=== PATIENT | female | born 1950 | race Hispanic/Latino ===

== ENCOUNTER 2017-09-24 11:00 | Emergency (ER) | payer OTHER ==
[~2017-09-24] VITALS: Ht 162.6 cm; Wt 90.7 kg
[2017-09-24] MEDS ORDERED: SODIUM CHLORIDE 0.9% 1000ML 1,000 ML IV STA (11:22)
[2017-09-24] MEDS ORDERED: KETOROLAC TROMETHAMINE 30 MG/ML VIAL IV STA (11:22)
[2017-09-24 12:45] LABS: BASOPHILS # (AUTO) 0.1 (0.0-0.1); BASOPHILS % 0.8 % (0.0-1.0); EOSINOPHILS % 0.3 % (0.0-6.0); HEMATOCRIT 42.7 % (34.2-44.1); HEMOGLOBIN 13.7 g/dL (12.0-16.0); LYMPHOCYTES # (AUTO) 2.2 (1.0-3.2); LYMPHOCYTES % 29.2 % (18.0-39.1); MEAN CORPUSCULAR HEMOGLOBIN 29.7 pg (28-32); MEAN CORPUSCULAR HGB CONC 32.1 g/dL (31-35); MEAN CORPUSCULAR VOLUME 92.6 fL (81-99); MONOCYTES # (AUTO) 0.4 (0.2-0.8); MONOCYTES % 4.6 % (4.4-11.3); NEUTROPHILS # (AUTO) 4.9 (2.1-6.9); NEUTROPHILS % 64.6 % (38.7-80.0); PLATELET COUNT 270 x10e3/uL (140-360); RED BLOOD COUNT 4.61 x10e6/uL (3.6-5.1)
[2017-09-24 12:57] LABS: ALANINE AMINOTRANSFERASE 25 IU/L (0-55); ALBUMIN 4.1 g/dL (3.5-5.0); ALBUMIN/GLOBULIN RATIO 1.2 (0.8-2.0); ALKALINE PHOSPHATASE 76 IU/L (40-150); ANION GAP 15.1 mmol/L (8-16); BLOOD UREA NITROGEN 14 mg/dL (7-26); BUN/CREATININE RATIO 16 (6-25); CALCIUM 9.8 mg/dL (8.4-10.2); CARBON DIOXIDE 26 mmol/L (22-29); CHLORIDE 101 mmol/L (98-107); CREATININE, SERUM 0.88 mg/dL (0.57-1.11); EST GLOMERULAR FILTRATION RATE > 60 ML/MIN (60-); GLUCOSE 149 mg/dL (74-118); POTASSIUM 4.1 mmol/L (3.5-5.1); SODIUM 138 mmol/L (136-145)
[2017-09-24 13:11] LABS: CLARITY,URINE CLOUDY (CLEAR); COLOR,URINE YELLOW (YELLOW); LEUKOCYTE ESTERASE ,URINE NEGATIVE (NEGATIVE); NITRITE,URINE NEGATIVE (NEGATIVE); PROTEIN,URINE DIPSTICK TRACE (NEGATIVE)
[2017-09-24 13:12] LABS: BILIRUBIN,URINE 1+ (NEGATIVE); KETONES,URINE TRACE (NEGATIVE); URINE UROBILINOGEN 0.2 mg/dL (0.2 - 1)
[2017-09-24 13:27] LABS: AMMONIUM BIURATE CRYSTALS,UR MANY; BACTERIA,URINE FEW /HPF; EPITHELIAL CELLS,URINE FEW /LPF; RBC,URINE 0-5 /HPF (0-5); WBC,URINE (MAN) 0-5 /HPF (0-5)
--- NOTE | 2017-09-24 15:27 | Diagnostic Imaging Report ---
PROCEDURE: CT ABDOMEN AND PELVIS WITH CONTRAST TECHNIQUE: The abdomen and pelvis were scanned utilizing a multidetector helical scanner from the diaphragm to the lesser trochanter after the IV administration of 100 cc of Isovue 370 and the oral administration of water. Coronal and sagittal multiplanar reformations were obtained. COMPARISON: None. INDICATIONS: RIGHT FLANK PAIN, RIGHT LOWER QUADRANT PAIN FINDINGS: LOWER THORAX: Scarlike opacities in the lung bases. HEPATOBILIARY: Diffuse hepatic steatosis. No focal hepatic lesions. No biliary ductal dilatation. SPLEEN: No splenomegaly. PANCREAS: No focal masses or ductal dilatation. ADRENALS: No adrenal nodules. KIDNEYS/URETERS: No hydronephrosis, stones, or solid mass lesions. Tiny hypodensity in the inferior pole the left kidney is probably a cyst PELVIC ORGANS/BLADDER: Unremarkable. PERITONEUM / RETROPERITONEUM: No free air or fluid. LYMPH NODES: No lymphadenopathy. VESSELS: Mild atherosclerotic ossification of the aorta and its branches. GI TRACT: Numerous sigmoid diverticula. There is very mild focal stranding around one of the diverticula (series 2, image 66). Otherwise no abnormal distention, wall thickening, or evidence of obstruction. The appendix is normal. BONES AND SOFT TISSUES: Multilevel degenerative changes of the thoracic and lumbar spine. IMPRESSION: Numerous sigmoid diverticula. There is very mild focal stranding around one of the diverticula which could represent early diverticulitis. No specific findings to account for RIGHT lower quadrant pain. The appendix is normal. No renal or ureteral stones. Dictated by: Anibal Chan M.D. on 09/24/2017 at 15:32 Electronically approved by: Anibal Chan M.D. on 09/24/2017 at 15:32
[2017-09-24 16:19] VITALS: BP 188/80
[2017-09-24] MEDS ORDERED: SODIUM CHLORIDE 0.9% 50ML 50 ML ONE (19:34)
[2017-09-24] MEDS ORDERED: IOPAMIDOL 370 MG/ML 200 ML INFUS..BTL INJ ONE (19:34)
== END 2017-09-24 16:29 | disposition home or self-care (01) ==
LOC: ER 11:00
DX: R10.9 Unspecified abdominal pain (principal); M54.5 Low back pain; N30.90 Cystitis, unspecified without hematuria
CPT/HCPCS: 36415; 74177; 76937; 80053; 81001; 85025; 99284; J1885; J7030; Q9967

== ENCOUNTER 2019-05-12 08:40 | Emergency (ER) | payer MEDICARE, OTHER ==
[~2019-05-12] VITALS: Ht 162.6 cm; Wt 90.7 kg
--- OUTSIDE RECORDS SUMMARY | 2019-05-12 08:43 | XMS REPORT ---
Author [facility] Address Unknown Phone Unavailable Care Team Providers Care Mother Tester Name Role Phone Aguila KNIGHT Unavailable Unavailable Payers Payer Name Policy Type Policy Number Effective Date Expiration Date Problems This patient has no known problems. Allergies, Adverse Reactions, Alerts Allergy Name Allergy Type Status Severity Reaction(s) Onset Date Inactive Date Treating Clinician Comments No Known Allergies DA Active U 2015-04-23 00:00:00 Medications This patient has no known medications. Encounters Start Date/Time End Date/Time Encounter Type Admission Type Attending [facility] Care Facility Care Department Encounter ID 2018-11-15 08:29:00 2018-11-15 08:29:00 Outpatient [id number] Results Test Description Test Time Test Comments Text Results Atomic Results Result Comments - XR HIP W/PEL UNI 2+V LT 2019-05-10 14:48:00 [place]: O St: REG Name: HARTJAMILAH SNYDER [facility] : 1950 Age/S: 68/F [address] Unit #: [id number] Loc: [place] [address] Phys: Radha Newell MD Acct: [id number] Dis Date: Status: REG CLI PHONE #: [phone] Exam Date: 05/10/2019 1131 FAX #: [phone] Reason: M25.552 EXAMS: CPT CODE: [id number] XR HIP W/PEL UNI 2+[place] [address] HISTORY: M25.552 EXAM: AP pelvis as well as AP and frog-leg views of the left hip Comparison: No relevant priors FINDINGS: No acute fracture of the bony pelvis. No diastases of the SI joints or pubic symphysis. Hip joints are not dislocated. Proximal femurs are intact. Lower lumbar spine is unremarkable. IMPRESSION: Negative radiographic examination of the bony pelvis. Location: [facility] Electronically S igned by Torrey Carreon MD on 05/10/2019 at 1448 Reported and signed by: Torrey Carreon MD CC: Technologist: RT Rebecca(Fozia) Trnscrd Date/Time/By: 05/10/2019 (8049) : By: [email or web address] Orig Print D/T: S: 05/10/2019 (7392) PAGE 1 Signed Report BREAST ULTRASOUND RIGHT 2019-01-09 11:31:15 - DIAG MAMM RIGHT MAGDA CAD DIGITALUNILATERAL RIGHT DIGITAL DIAGNOSTIC MAMMOGRAM 3D/2D WITH CAD: 01/09/2019CLINICAL: 6 Month follow-up. Digital breast tomosynthesis was performed in addition to routine CC and MLO views. Current mammographic images were evaluated by either a [employer] M- Vu or a VSporto ImageChecker CAD (computer aided detection system). Comparison is made to exams dated 06/15/2018 mammogram, 09/02/2017 mammogram, and 07/17/2016 mammogram - [facility]. There are scattered fibroglandular tissues in the right breast. Patient has a biopsy marker clip from previous needle biopsy. No suspicious mass, architectural distortion, malignant type calcification, or lymph node abnormality detected. INCOMPLETE: ADDITIONAL IMAGING EVALUATION NEEDEDThere is no mammographic evidence of malignancy. Survey right breast ultrasound to follow.- BREAST ULTRASOUND RIGHTULTRASOUND OF RIGHT BREAST: 01/09/2019Comparison is made to exams dated 06/15/2018 mammogram, 09/02/2017 mammogram, and 07/17/2016 mammogram - [facility]-. Color flow and real-time ultrasound of the right breast were performed. Jalloh scale images of the real-time examination were reviewed. The breast tissue has scattered fibroglandular background echotexture. Stable echogenic mass in the right breast at 9 o'clock, 14 cm from the nipple, which is benign per pathology report. The rest of the survey ultrasound is negative. No axillary lymphadenopathy was seen.IMPRESSION: BENIGN - FOLLOW-UP RECOMMENDEDThere is no sonographic evidence of malignancy. Return to screening mammography which is due in 6 months.Erick Sumner M.D. ss/:01/09/2019 11:31:15 Entry: - 01/10/2019 12:21:34Imaging Technologist: Mary MAYA, [facility] sent: BIRADS 1-2 Combo FU Letter Mammogram BI-RADS: 0 Incomplete: Additional Imaging Evaluation Needed Ultrasound BI-RADS: 2 Benign DIAG MAMM RIGHT MAGDA CAD DIGITAL 2019-01-09 11:31:15 - DIAG MAMM RIGHT MGADA CAD DIGITALUNILATERAL RIGHT DIGITAL DIAGNOSTIC MAMMOGRAM 3D/2D WITH CAD: 01/09/2019CLINICAL: 6 Month follow-up. Digital breast tomosynthesis was performed in addition to routine CC and MLO views. Current mammographic images were evaluated by either a [employer] M-Vu or a VSporto ImageChecker CAD (computer aided detection system). Comparison is made to exams dated 06/15/2018 mamm ogram, 09/02/2017 mammogram, and [facility]. There are scattered fibroglandular tissues in the right breast. Patient has a biopsy marker clip from previous needle biopsy. No suspicious mass, architectural distortion, malignant type calcification, or lymph node abnormality detected. INCOMPLETE: ADDITIONAL IMAGING EVALUATION NEEDEDThere is no mammographic evidence of malignancy. Survey right breast ultrasound to follow.- BREAST ULTRASOUND RIGHTULTRASOUND OF RIGHT BREAST: 01/09/2019Comparison is made to exams dated 06/15/2018 mammogram, 09/02/2017 mammogram, and [facility]17/2016 [facility]. Color flow and real-time ultrasound of the right breast were performed. Jalloh scale images of the real-time examination were reviewed. The breast tissue has scattered fibroglandular background echotexture. Stable echogenic mass in the right breast at 9 o'clock, 14 cm from the nipple, which is benign per pathology report. The rest of the survey ultras ound is negative. No axillary lymphadenopathy was seen.IMPRESSION: BENIGN - FOLLOW-UP RECOMMENDEDThere is no sonographic evidence of malignancy. Return to screening mammography which is due in 6 months.Erick Sumner M.D. ss/:01/09/2019 11:31:15 Entry: - 01/10/2019 12:21:34Imaging Technologist: Mary MAYA, [facility] sent: BIRADS 1-2 Combo FU Letter Mammogram BI-RADS: 0 Incomplete: Additional Imaging Evaluation Needed Ultrasound BI-RADS: 2 Benign - XR T-SPINE 3 VIEWS 2018-07-26 16:49:00 Name: JAMILAH HART [facility] : 1950 Age/S:68 /F [address] [facility] Unit#:[id number] Loc: [place] [address] Phys: Haider Knight MD Dis Date: PHONE #: [phone] Status: REG ER FAX #: [phone] Exam Date: 07/26/2018 Reason: pain EXAMS: CPT CODE: [id number] XR T-SPINE 3 VIEWS 03329 REASON FOR EXAM: pain EXAM ORDER DATE: 07/26/2018 4:28 PM Ordering Clifford.Jennifer: Haider Knight MD PROCEDURE: - XR T-SPINE 3 VIEWS FINDINGS: 3 views of the thoracic spine were obtained. There is normal alignment of the thoracic spine. The vertebral bodies are unremarkable in size and shape. The disc spaces are maintained. No evidence of fracture. IMPRESSION: Unremarkable thoracic spine at 0319 Reported and signed by: Kapil Blas M.D. CC: Haider Knight MD Technologist: Lynda Conner Trnscrpt Data: 07/26/2018 (1342) [email or web address] Orig Print D/T: S: 07/26/2018 (9037) PAGE 1 Signed Report - XR CHEST 2 V 2018-07-26 16:49:00 Name: JAMILAH HART [facility] : 1950 Age/S:68 /F [address] [facility] Unit#:[id number] Loc: [place] [address] Phys: Haider Knight MD Dis Date: PHONE #: [phone] Status: REG ER FAX #: [phone] Exam Date: 07/26/2018 Reason: sob EXAMS: CPT CODE: [id number] XR CHEST 2 V 45881 REASON FOR EXAM: sob Exam Order Date: 07/26/2018 4:28 PM Ordering MGabriel: Haider Knight MD PROCEDURE: - XR CHEST 2 V COMPARISON: FINDINGS: PA and lateral views of the chest show clear lungs without evidence of consolidation. No evidence of effusion. The heart size is minimally enlarged. Pulmonary vasculatures are unremarkable. The osseous structures are grossly intact. IMPRESSION: No active disease. at 8509 Reported and signed by: Kapil Blas M.D. CC: Haider Knight MD Technologist: Lynda Conner Trnscrpt Data: 07/26/2018 (3143) [email or web address] Orig Print D/T: S: 07/26/2018 (2587) PAGE 1 Signed Report BREAST ULTRASOUND CORE BIOPSY RIGHT 2018-07-12 09:59:22 - BREAST ULTRASOUND CORE BIOPSY RIGHTULTRASOUND GUIDED BIOPSY RIGHT BREAST WITH MARKING DEVICE INSERTED: 07/05/2018CLINICAL: Ultrasound biopsy, right breast. An ultrasound guided biopsy using real-time ultrasound was performed for the 5 mm mass located in the right breast at 9 o'clock, 14 cm from the nipple. The skin was prepped in the usual manner. Local anesthetic was administered to the access site. A 14 gauge biopsy needle was placed adjacent to the abnormality under ultrasound guidance. Once the needle was documented to be in the correct location, multiple specimens were obtained using a Dolosys biopsy device. A clip was inserted into the biopsy cavity. The specimens were sent to the laboratory for pathological analysis. IMPRESSION: ULTRASOUND GUIDED BIOPSY BENIGN Ultrasound guided biopsy of the 5 mm mass in the right breast at 9 o'clock, 14 cm from the nipple, was successful with no apparent post procedure complications. PATHOLOGY INDICATES:Benign vascular lesion. RECOMMENDATION:A follow-up mammogram and an ultrasound in 6 months is recommended to demonstrate stability. Cheryle Newton M.D. dm/:07/12/2018 09:59:22 Cattle Broker: Rossana Jones , [facility]: Benign Biopsy DIAG MAMM RIGHT CAD DIGITAL 2018-07-05 10:15:22 - DIAG MAMM RIGHT CAD DIGITALUNILATERAL RIGHT DIGITAL DIAGNOSTIC MAMMOGRAM WITH CAD - RIGHT BREAST POST-PROCEDURE IMAGING FOR MARKER PLACEMENT: 07/05/2018CLINICAL: Post clip placement. Current mammographic images were evaluated by either a [employer] SystemsP M-Vu or a CrowdyHousecker CAD (computer aided detection system). Comparison is made to exams dated 06/15/2018 mammogram, 09/02/2017 mammogram, and [facility]17[facility]. There are scattered fibroglandular tissues in the right breast. There is a marker clip in the appropriate position in the right breast at 9 o'clock. This marker clip placement is at the biopsy site. IMPRESSION: POST PROCEDURE IMAGING FOR MARKER PLACEMENTThere was a successful marker clip placement in the right breast. Cheryle Newton M.D. dm/:07/05/2018 10:15:22 Cattle Broker: Mary MAYA, [facility]: Post-procedure mammogram for marker placement SCR MAMM BILATERAL MAGDA CAD DIGITAL 2018-06-16 11:12:18 - SCR MAMM BILATERAL MAGDA CAD DIGITALBILATERAL DIGITAL SCREENING MAMMOGRAM 3D/2D WITH CAD: 06/15/2018CLINICAL: Asymptomatic. Digital breast tomosynthesis was performed in addition to routine CC and MLO views. Current mammographic images were evaluated by either a [employer] SystemsP M-Vu or a VSporto ImageDekkuncker CAD (computer aided detection system). Comparison is made to exams dated 09/02/2017 mammogram, 2016 mammogram, 07/18/2015 mammogram, and 07/09/2014 mammogram - [facility]-. There are scattered fibroglandular tissues in both breasts. No new suspicious mass, architectural distortion, malignant type calcification, or lymph node abnormality detected. Breast architecture is stable compared to prior exams.IMPRESSION: NEGATIVEThere is no mammographic evidence of malignancy. Resume annual screening mammography in one year. Sonya Jurado M.D. ar/:06/16/2018 11:12:18 Entry: - 06/16/2018 12:05:31Imaging Technologist: Emiliano Jain , [facility]-Mammogram BI-RADS: 1 Negative BREAST ULTRASOUND BILATERAL 2018-06-15 15:07:09 - BREAST ULTRASOUND BILATERALULTRASOUND OF BOTH BREASTS AND BOTH AXILLA: 06/15/2018CLINICAL: Bilateral breast pain. Comparison is made to exams dated 06/15/2018 mammogram, 09/02/2017 mammogram, 07/17/2016 mammogram, 09/23/2015 ultrasound, and 09/23/2015 mammogram - [facility]-. Real-time ultrasound of both breasts and both axilla was performed. RIGHT BREAST: There is a 7 x 3 x 5 mm echogenic oval mass with a circumscribed margin in the right breast at 9 o'clock, 14 cm from the nipple. This mass is at the area of focal discomfort noted by the patient on real-time ultrasound imaging. The remainder of the right breast and right axillary ultrasound is unremarkable.LEFT BREAST: No abnormalities were seen sonographically in the left breast or axilla. IMPRESSION: SUSPICIOUS OF MALIGNANCY - FOLLOW-UP RECOMMENDEDRIGHT BREAST: The 7 x 3 x 5 mm echogenic oval mass in the right breast at 9 o'clock, 14 cm from the nipple, is at a low suspicion for malignancy. However, this correlates with an area of focal discomfort noted by the patient on real-time ultrasound imaging, so an ultrasound guided biopsy is recommended. LEFT BREAST: There is no evidence of malignancySonya Jurado M.D. ar/:06/15/2018 15:07:09 Cattle Broker: Rossana MAYA, [facility] sent: BIRADS 4/5 Biopsy Ultrasound BI-RADS: 4a Suspicious abnormality - low suspicion for malignancy US GUIDANCE FOR VASCULAR ACCES 2017-10-05 12:27:00 [facility] [address] [address] Patient Name: JAMILAH HART MR #: [id number] : 1950 Age/Sex: 67/F Req #: [id number] Adm Physician: Ordered by: HAIDER KNIGHT MD Report #: [id number] Location: ER Room/Bed: Procedure: [id number] US/US GUIDANCE FOR VASCULAR ACCES Exam Date: Exam Time: REPORT STATUS: Signed PROCEDURE: US GUIDANCE FOR VASCULAR ACCESS COMPARISON: None. INDICATIONS: Lack of IV access FINDINGS: Ultrasound evaluation of potential access sites was performed. After successfully identifying a patent vessel, US guidance was used to puncture the vein. A permanent recording was created for the patient record. CONCLUSION: Successful IV access by Ultrasound guidance. Jim Mendez M.D. Dictated by: Jim Mendez M.D. on 10/05/2017 at 12:27 Electronically approved by: Jim Mendez M.D. on 10/05/2017 at 12:27 Dictated By: JIM MENDEZ MD 1227 Transcribed By: SHIRA on 10/05/17 1227 COPY TO: HAIDER KNIGHT MD CT ABDOMEN/PELVIS W 2017-09-24 15:32:00 [place] [address] Patient Name: JAMILAH HART MR #: [id number] : 1950 Age/Sex: 67/F Req #: [id number] Adm Physician: Ordered by: BETTY DURAN NP Report #: [id number] Location: ER Room/Bed: Procedure: [id number] CT/CT ABDOMEN/PELVIS W Exam Date: 09/24/17 Exam Time: 1439 REPORT STATUS: Signed PROCEDURE: CT ABDOMEN AND PELVIS WITH CONTRAST TECHNIQUE: The abdomen and pelvis were scanned utilizing a multidetector helical scanner from the diaphragm to the lesser trochanter after the IV administration of 100 cc of Isovue 370 and the oral administration of water. Coronal and sagittal multiplanar reformations were obtained. COMPARISON: None. INDICATIONS: RIGHT FLANK PAIN, RIGHT LOWER QUADRANT PAIN FINDINGS: LOWER THORAX: Scarlike opacities in the lung bases. HEPATOBILIARY: Diffuse hepatic steatosis. No focal hepatic lesions. No biliary ductal dilatation. SPLEEN: No splenomegaly. PANCREAS: No focal masses or ductal dilatation. ADRENALS: No adrenal nodules. KIDNEYS/URETERS: No hydronephrosis, stones, or solid mass lesions. Tiny hypodensity in the inferior pole the left kidney is probably a cyst PELVIC ORGANS/BLADDER: Unremarkable. PERITONEUM / RETROPERITONEUM: No free air or fluid. LYMPH NODES: No lymphadenopathy. VESSELS: Mild atherosclerotic ossification of the aorta and its branches. GI TRACT: Numerous sigmoid diverticula. There is very mild focal stranding around one of the diverticula (series 2, image 66). Otherwise no abnormal distention, wall thickening, or evidence of obstruction. The appendix is normal. BONES AND SOFT TISSUES: Multilevel degenerative changes of the thoracic and lumbar spine. IMPRESSION: Numerous sigmoid diverticula. There is very mild focal stranding around one of the diverticula which could represent early diverticulitis. No specific findings to account for RIGHT lower quadrant pain. The appendix is normal. No renal or ureteral stones. Dictated by: Jordyn Chan M.D. on 09/24/2017 at 15:32 Electronically approved by: Jordyn Chan M.D. on 09/24/2017 at 15:32 Dictated By: JORDYN CHAN MD 1532 Transcribed By: SHIRA on 09/24/17 1532 COPY TO: BETTY DURAN NP
== END 2019-05-12 10:15 | disposition home or self-care (01) ==
LOC: ER 08:40
DX: K64.4 Residual hemorrhoidal skin tags (principal)
CPT/HCPCS: 99282

== ENCOUNTER 2021-07-11 13:00 | Emergency (ER) | payer MEDICARE, OTHER ==
[~2021-07-11] VITALS: Ht 162.6 cm; Wt 90.7 kg
[2021-07-11] MEDS ORDERED: ASPIRIN 81 MG CHEW TAB PO STA (13:19)
[2021-07-11 13:40] LABS: BASOPHILS # (AUTO) 0.1 (0.0-0.1); BASOPHILS % 0.6 % (0.0-1.0); EOSINOPHILS # (AUTO) 0.1 (0.0-0.4); EOSINOPHILS % 0.6 % (0.0-6.0); HEMATOCRIT 38.3 % (34.2-44.1); HEMOGLOBIN 12.1 g/dL (12.0-16.0); LYMPHOCYTES # (AUTO) 2.3 (1.0-3.2); LYMPHOCYTES % 29.5 % (18.0-39.1); MEAN CORPUSCULAR HEMOGLOBIN 29.6 pg (28-32); MEAN CORPUSCULAR HGB CONC 31.6 g/dL (31-35); MEAN CORPUSCULAR VOLUME 93.6 fL (81-99); MONOCYTES # (AUTO) 0.6 (0.2-0.8); MONOCYTES % 7.1 % (4.4-11.3); NEUTROPHILS # (AUTO) 4.8 (2.1-6.9); NEUTROPHILS % 61.8 % (38.7-80.0); PLATELET COUNT 261 x10e3/uL (140-360); RED BLOOD COUNT 4.09 x10e6/uL (3.6-5.1); RED CELL DISTRIBUTION WIDTH 12.2 % (11.7-14.4)
[2021-07-11 13:51] LABS: INR 1.03; PROTHROMBIN TIME 14.4 seconds (11.9-14.5)
[2021-07-11 13:52] LABS: PARTIAL THROMBOPLASTIN TIME 26.4 seconds (23.8-35.5)
[2021-07-11 13:58] LABS: ALANINE AMINOTRANSFERASE 15 IU/L (0-55); ALBUMIN 3.4 g/dL (3.5-5.0); ALKALINE PHOSPHATASE 72 IU/L (40-150); ANION GAP 13.3 mmol/L (8-16); BLOOD UREA NITROGEN 12 mg/dL (7-26); BUN/CREATININE RATIO 14 (6-25); CALCIUM 8.8 mg/dL (8.4-10.2); CARBON DIOXIDE 28 mmol/L (22-29); CHLORIDE 103 mmol/L (98-107); CREATINE KINASE 30 IU/L (29-168); CREATININE, SERUM 0.86 mg/dL (0.57-1.11); EST GLOMERULAR FILTRATION RATE 65 ML/MIN (60-); GLUCOSE 101 mg/dL (74-118); POTASSIUM 4.3 mmol/L (3.5-5.1); SODIUM 140 mmol/L (136-145)
== END 2021-07-11 16:50 | disposition home or self-care (01) ==
LOC: ER 13:08
DX: R00.2 Palpitations (principal); I10 Essential (primary) hypertension; E11.9 Type 2 diabetes mellitus without complications; Z20.822 Contact with and (suspected) exposure to COVID-19
CPT/HCPCS: 36415; 71045; 80053; 82550; 82553; 83880; 84484; 85025; 85610; 85730; 93005; 99284; U0002

== ENCOUNTER → 2023-12-20 | Outpatient (REF) | payer OTHER | LOC: CT 08:37 | PROVIDERS: ATTEND Internal Medicine | DX: R22.41 Localized swelling, mass and lump, right lower limb (principal) ==

== ENCOUNTER 2024-12-12 11:09 | Emergency (ER) | payer MEDICARE ==
[~2024-12-12] VITALS: Ht 160 cm; Wt 83.9 kg
[2024-12-12 11:34] VITALS: PULSE 92; RESP 16; TEMP 98.2; O2SAT 100
[2024-12-12] MEDS ORDERED: VALTREX1000 MG PO (12:14)
[2024-12-12] MEDS ORDERED: PREDNISONE20 MG PO (12:14)
== END 2024-12-12 12:52 | disposition home or self-care (01) ==
LOC: ER 11:31
DX: G51.0 Bell's palsy (principal); I10 Essential (primary) hypertension; E11.9 Type 2 diabetes mellitus without complications; E78.5 Hyperlipidemia, unspecified; E03.9 Hypothyroidism, unspecified; M19.09 Primary osteoarthritis, other specified site
CPT/HCPCS: 99282